=== PATIENT | female | born 1945 | race Hispanic/Latino ===

== ENCOUNTER 2018-06-28 09:46 | Emergency (ER) | payer OTHER, SELFPAY ==
[2018-06-28] MEDS ORDERED: HYDROCODONE/APAP 7.5/325 MG TAB ONE (10:41)
--- NOTE | 2018-06-28 11:17 | RAD REPORT ---
EXAM DESCRIPTION: RAD - Pelvis - 06/28/2018 11:02 am CLINICAL HISTORY: Pelvic pain status post fall FINDINGS: No fracture or dislocation is seen. The bones are osteoporotic If the patient continues to have symptoms to suggest an occult fracture then MRI would be recommende d
--- NOTE | 2018-06-28 11:18 | RAD REPORT ---
EXAM DESCRIPTION: RAD - Hip Right 2 View - 06/28/2018 11:02 am CLINICAL HISTORY: Right hip pain status post fall FINDINGS: No fracture or dislocation is seen. The bones are osteoporotic If the patient continues to have symptoms to suggest an occult fracture then MRI would be recommended
--- NOTE | 2018-06-28 11:19 | RAD REPORT ---
EXAM DESCRIPTION: RAD - Knee Right 3 View - 06/28/2018 11:01 am CLINICAL HISTORY: Right knee pain status post fall FINDINGS: No fracture or dislocation is seen. Bones are osteoporotic If the patient continues have symptoms to suggest an occult fracture, ligamentous or meniscal injury then an MRI would be recommended.
--- NOTE | 2018-06-28 11:48 | EDPHYS ---
Physician Documentation [facility] Name: Enedina Stallworth Age: 73 yrs Sex: Female : 1945 Arrival Date: 06/28/2018 Time: 09:48 Bed 5 Private MD: ED Physician Callum Daniels HPI: 06/28 15:26 This 73 yrs old Female presents to ER via Wheelchair with complaints of Fall kdr Injury. 15:26 Details of fall: The patient fell from an upright position, while walking. Onset: The kdr symptoms/episode began/occurred suddenly, yesterday. Associated injuries: The patient sustained right knee, right hip, decreased range of motion, painful injury. Severity of symptoms: At their worst the symptoms were moderate, in the emergency department the symptoms are unchanged. The patient has not experienced similar symptoms in the past. The patient has not recently seen a physician. Was walking when she tripped and fell forward on her knees. Now she has mild swelling to the right knee and decreased ROM. Historical: - Allergies: 09:57 PENICILLINS; aj1 - Home Meds: 09:57 captopril 25 mg Oral tab 1 tab 2 times per day [Active]; metformin 850 mg Oral tab 1 aj1 tab 2 times per day [Active]; gilbenclamida 5 mg [Active]; - PMHx: 09:57 Diabetes - NIDDM; Hypertension; aj1 - PSHx: 09:57 None; aj1 - Immunization history:: Flu vaccine is not up to date. - Social history:: Smoking status: Patient/guardian denies using tobacco. - Ebola Screening: : Patient denies travel to an Ebola-affected area in the 21 days before illness onset. ROS: 15:26 Constitutional: Negative for fever, chills, and weight loss, Eyes: Negative for injury, kdr pain, redness, and discharge, ENT: Negative for injury, pain, and discharge, Neck: Negative for injury, pain, and swelling, Cardiovascular: Negative for chest pain, palpitations, and edema, Respiratory: Negative for shortness of breath, cough, wheezing, and pleuritic chest pain, Abdomen/GI: Negative for abdominal pain, nausea, vomiting, diarrhea, and constipation, Back: Negative for injury and pain, : Negative for injury, bleeding, discharge, and swelling, Skin: Negative for injury, rash, and discoloration, Neuro: Negative for headache, weakness, numbness, tingling, and seizure activity. Psych: Negative for depression, anxiety, suicide ideation, homicidal ideation, and hallucinations, Allergy/Immunology: Negative for hives, rash, and allergies, Endocrine: Negative for neck swelling, polydipsia, polyuria, polyphagia, and marked weight changes, Hematologic/Lymphatic: Negative for swollen nodes, abnormal bleeding, and unusual bruising. 15:26 MS/extremity: Positive for contusion, decreased range of motion, pain, swelling, tenderness, of the right knee, Negative for Exam: 15:26 Constitutional: This is a well developed, well nourished patient who is awake, alert, kdr and in no acute distress. Head/Face: Normocephalic, atraumatic. Eyes: Pupils equal round and reactive to light, extra-ocular motions intact. Lids and lashes normal. Conjunctiva and sclera are non-icteric and not injected. Cornea within normal limits. Periorbital areas with no swelling, redness, or edema. Neck: Trachea midline, no thyromegaly or masses palpated, and no cervical lymphadenopathy. Supple, full range of motion without nuchal rigidity, or vertebral point tenderness. No Meningismus. Chest/axilla: Normal chest wall appearance and motion. Nontender with no deformity. No lesions are appreciated. Cardiovascular: Regular rate and rhythm with a normal S1 and S2. No gallops, murmurs, or rubs. Normal PMI, no JVD. No pulse deficits. Respiratory: Lungs have equal breath sounds bilaterally, clear to auscultation and percussion. No rales, rhonchi or wheezes noted. No increased work of breathing, no retractions or nasal flaring. Abdomen/GI: Soft, non-tender, with normal bowel sounds. No distension or tympany. No guarding or rebound. No evidence of tenderness throughout. Back: No spinal tenderness. No costovertebral tenderness. Full range of motion. Skin: Warm, dry with normal turgor. Normal color with no rashes, no lesions, and no evidence of cellulitis. Neuro: Awake and alert, GCS 15, oriented to person, place, time, and situation. Cranial nerves II-XII grossly intact. Motor strength 5/5 in all extremities. Sensory grossly intact. Cerebellar exam normal. Normal gait. Psych: Awake, alert, with orientation to person, place and time. Behavior, mood, and affect are within normal limits. 15:26 Musculoskeletal/extremity: Extremities: grossly normal except: noted in the right knee: decreased ROM, pain, swelling, tenderness. Vital Signs: 09:57 BP 154 / 65; Pulse 62; Resp 18; Temp 97.0; Pulse Ox 99% on R/A; Weight 74.84 kg (R); aj1 Height 5 ft. 5 in. (165.10 cm) (R); Pain 9/10; 11:09 BP 157 / 65; Pulse 54; Resp 16; Pulse Ox 99% ; bp 12:14 BP 151 / 48; Pulse 52; Resp 16; Pulse Ox 98% ; bp 09:57 Body Mass Index 27.46 (74.84 kg, 165.10 cm) aj1 MDM: 11:47 Patient medically screened. kdr 15:30 Data reviewed: vital signs, nurses notes, radiologic studies. Counseling: I had a kdr detailed discussion with the patient and/or guardian regarding: the historical points, exam findings, and any diagnostic results supporting the discharge/admit diagnosis, radiology results, the need for outpatient follow up. 06/28 10:30 Order name: Knee Right 3 View XRAY; Complete Time: 11:45 kdr 06/28 10:30 Order name: Hip Right 2 View XRAY; Complete Time: 11:45 kdr 06/28 10:30 Order name: Pelvis XRAY; Complete Time: 11:45 kdr 06/28 11:59 Order name: Vladislav wrap-joint: Right knee; Complete Time: 12:02 kdr Administered Medications: 10:37 Drug: [place] (7.5 mg-325 mg) 1 tabs Route: PO; bp 12:13 Follow up: Response: Pain is decreased bp Disposition: 06/28/18 11:47 Discharged to Home. Impression: Pain in right knee, Contusion of right knee, Other slipping, tripping and stumbling and falls, Pain in right hip. - Condition is Stable. - Discharge Instructions: Musculoskeletal Pain, Crutch Use, Ihoa-[id number], Hip Pain, Knee Pain, [id number], Joint Pain, [id number]. - Prescriptions for Tramadol 50 mg Oral Tablet - take 1 tablet by ORAL route every 8 hours as needed; 12 tablet. - Medication Reconciliation Form, Thank You Letter, Prescription Opioid Use form. - Follow up: Private Physician; When: 2 - 3 days; Reason: If symptoms return, Further diagnostic work-up, Recheck today's complaints, Continuance of care, Re-evaluation by your physician. - Problem is new. - Symptoms have improved. Signatures: Dispatcher [employer] EDAlthea Galloway RN RN aj1 Callum Daniels MD MD kdr Paul Badillo RN RN bp Corrections: (The following items were deleted from the chart) 12:16 11:47 06/28/2018 11:47 Discharged to Home. Impression: Pain in right knee; Contusion of bp right knee; Other slipping, tripping and stumbling and falls; Pain in right hip. Condition is Stable. Forms are Medication Reconciliation Form, Thank You Letter, Antibiotic Education, Prescription Opioid Use. Follow up: Private Physician; When: 2 - 3 days; Reason: If symptoms return, Further diagnostic work-up, Recheck today's complaints, Continuance of care, Re-evaluation by your physician. Problem is new. Symptoms have improved. kdr
--- NOTE | 2018-06-28 11:48 | ER ---
Nurse's Notes [facility] Name: Enedina Stallworth Age: 73 yrs Sex: Female : 1945 Arrival Date: 06/28/2018 Time: 09:48 Bed 5 Private MD: Diagnosis: Pain in right knee;Contusion of right knee;Other slipping, tripping and stumbling and falls;Pain in right hip Presentation: 06/28 09:53 Presenting complaint: Child states: "She fell onto her knees and now her whole right aj1 leg hurts, she isn't able to stand on it at all". Care prior to arrival: None. Mechanism of Injury: Fall from standing position. Trauma event details: Injury occurred in the [facility]. 09:53 Acuity: GUDELIA 4 aj1 09:53 Method Of Arrival: Wheelchair aj1 09:55 Transition of care: patient was not received from another setting of care. Onset of aj1 symptoms was June 27, 2018. Risk Assessment: Do you want to hurt yourself or someone else? Patient reports no desire to harm self or others. Initial Sepsis Screen: Does the patient meet any 2 criteria? No. Patient's initial sepsis screen is negative. Does the patient have a suspected source of infection? No. Patient's initial sepsis screen is negative. Triage Assessment: 09:57 General: Appears in no apparent distress. uncomfortable, Behavior is calm, cooperative, aj1 appropriate for age. Pain: Complains of pain in right leg Pain currently is 9 out of 10 on a pain scale. Neuro: Level of Consciousness is awake, alert, obeys commands. Cardiovascular: Patient's skin is warm and dry. Respiratory: Airway is patent Respiratory effort is even, unlabored, Respiratory pattern is regular, symmetrical. Trauma Activation: Not Applicable Physician: ED Physician; Name: ; Notified At: ; Arrived At: Physician: General Surgeon; Name: ; Notified At: ; Arrived At: Physician: Radiology; Name: ; Notified At: ; Arrived At: Physician: Respiratory; Name: ; Notified At: ; Arrived At: Physician: Lab; Name: ; Notified At: ; Arrived At: Historical: - Allergies: :57 PENICILLINS; aj1 - Home Meds: :57 captopril 25 mg Oral tab 1 tab 2 times per day [Active]; metformin 850 mg Oral tab 1 aj1 tab 2 times per day [Active]; gilbenclamida 5 mg [Active]; - PMHx: 09:57 Diabetes - NIDDM; Hypertension; aj1 - PSHx: 09:57 None; aj1 - Immunization history:: Flu vaccine is not up to date. - Social history:: Smoking status: Patient/guardian denies using tobacco. - Ebola Screening: : Patient denies travel to an Ebola-affected area in the 21 days before illness onset. Screenin:09 Abuse screen: Denies threats or abuse. Denies injuries from another. Abuse screen: bp Denies threats or abuse. Denies injuries from another. Nutritional screening: No deficits noted. Tuberculosis screening: No symptoms or risk factors identified. Fall Risk Fall in past 12 months (25 points). No secondary diagnosis (0 pts). No IV (0 pts). Ambulatory Aid- None/Bed Rest/Nurse Assist (0 pts). Gait- Normal/Bed Rest/Wheelchair (0 pts) Mental Status- Oriented to own ability (0 pts). Assessment: 10:00 General: Appears in no apparent distress. uncomfortable, obese, Behavior is bp cooperative, appropriate for age, anxious. Pain: Complains of pain in right leg. Neuro: Level of Consciousness is awake, alert, obeys commands, Oriented to person, place, time, situation, Appropriate for age. Cardiovascular: No deficits noted. Respiratory: Airway is patent Respiratory effort is even, unlabored, Respiratory pattern is regular, symmetrical. GI: No signs and/or symptoms were reported involving the gastrointestinal system. : No signs and/or symptoms were reported regarding the genitourinary system. EENT: No deficits noted. Derm: No deficits noted. No signs and/or symptoms reported regarding the dermatologic system. Musculoskeletal: Reports pain in right leg. 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 bp 11:09 Reassessment: PT RETURNED FROM XRAY. ALL CURRENT ORDERS COMPLETED, RESULTS PENDING. VS bp STABLE ON MONITOR. 12:13 Reassessment: PT D/C HOME VIA W/C WITH FAMILY, DX WITH CONTUSION. bp Vital Signs: 09:57 BP 154 / 65; Pulse 62; Resp 18; Temp 97.0; Pulse Ox 99% on R/A; Weight 74.84 kg (R); aj1 Height 5 ft. 5 in. (165.10 cm) (R); Pain 9/10; 11:09 BP 157 / 65; Pulse 54; Resp 16; Pulse Ox 99% ; bp 12:14 BP 151 / 48; Pulse 52; Resp 16; Pulse Ox 98% ; bp 09:57 Body Mass Index 27.46 (74.84 kg, 165.10 cm) aj1 ED Course: 09:48 Patient arrived in ED. tw3 09:55 Triage completed. aj1 09:57 Arm band placed on Patient placed in an exam room. aj1 10:00 Patient has correct armband on for positive identification. Placed in gown. Bed in low bp position. Call light in reach. Side rails up X2. Adult w/ patient. 10:01 Paul Badillo, CAROLINE is Primary Nurse. bp 10:02 Callum Daniels MD is Attending Physician. kdr 11:00 Knee Right 3 View XRAY In Process Unspecified. EDMS 11:00 Hip Right 2 View XRAY In Process Unspecified. EDMS 11:00 Pelvis XRAY In Process Unspecified. EDMS 12:02 Vladislav wrap to right knee. em1 12:14 No provider procedures requiring assistance completed. Patient did not have IV access bp during this emergency room visit. Administered Medications: 10:37 Drug: [place] (7.5 mg-325 mg) 1 tabs Route: PO; bp 12:13 Follow up: Response: Pain is decreased bp Outcome: 11:47 Discharge ordered by . kdr 12:15 Discharged to home via wheelchair, with family. bp 12:15 Condition: stable 12:15 Discharge instructions given to patient, family, Instructed on discharge instructions, follow up and referral plans. medication usage, Demonstrated understanding of instructions, follow-up care, medications, Prescriptions given X 1. 12:16 Patient left the ED. bp Signatures: Dispatcher [employer] EDMS Althea Jeronimo RN RN aj1 Callum Daniels MD MD kdr Martinez, Eric em1 Ellie Mcallister tw3 Paul Badillo, RN RN bp Corrections: (The following items were deleted from the chart) 09:59 09:57 BP 154 / 65; Pulse 62bpm; Resp 08bpm; Pulse Ox 99% RA; Temp 97.0F; 74.84 kg aj1 Reported; Height 5 ft. 5 in. Reported; BMI: 27.4; Pain 9/10; aj1 10:14 10:09 Fall Risk No fall in past 12 months (0 pts). bp bp
[2018-06-28 12:20] VITALS: TEMP 97
[2018-06-28 12:23] VITALS: BP 151/48; O2SAT 98
== END 2018-06-28 12:16 | disposition home or self-care (01) ==
LOC: ER 09:46
DX: S80.01XA Contusion of right knee, initial encounter (principal); M25.551 Pain in right hip; W01.0XXA Fall on same level from slipping, tripping and stumbling without subsequent striking against object, initial encounter; Y93.01 Activity, walking, marching and hiking; Y92.9 Unspecified place or not applicable; Z88.0 Allergy status to penicillin; I10 Essential (primary) hypertension; E11.9 Type 2 diabetes mellitus without complications
CPT/HCPCS: 72170; 99284